=== PATIENT | female | born 1950 | race Caucasian/White ===

== ENCOUNTER 2017-05-21 10:29 | Outpatient (CLI) | payer OTHER, MEDICARE ==
--- NOTE | 2017-05-21 11:30 | SJPRAD ---
TWO VIEWS RIGHT HIP: Comparison: None. History: Right hip pain. FINDINGS: Two views of the right hip shows no evidence of acute fracture or dislocation. No degenerative buenrostro es are seen. IMPRESSION: Unremarkable exam. POS: JUNIOR
--- NOTE | 2017-05-21 12:27 | SJPRAD ---
THREE VIEWS LUMBOSACRAL SPINE: Comparison: None. History: Low back pain with right sided sciatica. FINDINGS: Three views of the lumbosacral spine shows normal height and alignment of the vertebral bodies witho ut fracture or significant subluxation. Small osteophytes and mild posterior facet arthrosis is seen in the lower lumbosacral spine. Vascular calcifications are seen in the aorta. 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 POS: JUNIOR
== END 2017-05-21 10:30 | disposition home or self-care (01) ==
LOC: MWLC RAD 10:29
PROVIDERS: ATTEND Internal Medicine Geriatric Medicine
DX: M54.41 Lumbago with sciatica, right side (principal); M25.551 Pain in right hip; M47.896 Other spondylosis, lumbar region